=== PATIENT | female | born 1940 | race African-American/Black ===

== ENCOUNTER 2020-07-13 09:10 | Observation (INO) ==
[2020-07-13 09:29] LABS: Basophils % 0.3 % (0.0-0.8); Eosinophils # 0.2 10*3/uL (0.0-0.87); Eosinophils % 1.3 % (0.00-10.9); Hematocrit 34.7 VOL% (35.7-47.0); Hemoglobin 11.3 GM/DL (12.0-16.0); Immature Granulocytes % 0.6 %; Immature Granulocytes Absolute 0.08 #; Lymphocytes # 2.2 10*3/uL (1.4-4.0); Lymphocytes % 16.5 % (21.3-54.2); Mean Corpuscular HGB Conc 32.6 GM/DL (32-36); Mean Corpuscular Volume 84.8 FL (87-102); Mean Platelet Volume 11.3 FL (9.6-12.0); Monocytes % 10.7 % (1.7-12.7); Neutrophils % 70.6 % (38.7-73.9); Platelet Count 369 T/CUMM (130-400); Red Blood Count 4.09 MC/CUMM (3.8-5.5); Red Cell Distribution Width 13.2 % (9.3-17.3); White Blood Count 13.2 T/CUMM (4-12)
[2020-07-13] MEDS ORDERED: FUROSEMIDE 100 MG/10 ML VIAL IV STA (10:06)
[2020-07-13] MEDS ORDERED: ENOXAPARIN 30 MG/0.3 ML SYRINGE SUBCUT STA (10:06)
[2020-07-13] MEDS ORDERED: FUROSEMIDE 40 MG/4 ML VIAL ONE (10:08)
[2020-07-13 10:09] LABS: Albumin 2.5 G/DL (3.4-5.0); Bilirubin,Total 0.4 MG/DL (0.2-1.0); Calcium 9.1 MG/DL (8.5-10.1); Osmolality,Calculated 276.1 MOS/KG (273-304); Total Protein 6.9 G/DL (6.4-8.3)
[2020-07-13] MEDS ORDERED: ENOXAPARIN 120 MG/0.8 ML SYRINGE SUBCUT ONE (10:09)
[2020-07-13] MEDS ORDERED: traZODone 50 MG TABLET PO PRN (10:27)
[2020-07-13] MEDS ORDERED: guaiFENesin/DM ER 600-30 MG TABLET PO PRN (10:27)
[2020-07-13] MEDS ORDERED: MORPHINE 4 MG/1 ML VIAL IV PRN (10:27)
[2020-07-13] MEDS ORDERED: MAGNESIUM SULF RIDER 4 GM in PREMIX 1 EACH IV PRN (10:27)
[2020-07-13] MEDS ORDERED: DOCUSATE SODIUM 100 MG CAPSULE PO PRN (10:27)
[2020-07-13] MEDS ORDERED: POTASSIUM CHLORIDE 20 MEQ TABLET PO PRN (10:27)
[2020-07-13] MEDS ORDERED: PROMETHAZINE 25 MG TABLET PO PRN (10:27)
[2020-07-13] MEDS ORDERED: diphenhydrAMINE CAP 25 MG CAPSULE PO PRN (10:27)
[2020-07-13] MEDS ORDERED: ONDANSETRON 4 MG/2 ML VIAL IV PRN (10:27)
[2020-07-13] MEDS ORDERED: ALUMINUM/MAGNES/SIMETH MAX STR 30 ML UDCUP PO PRN (10:27)
[2020-07-13] MEDS ORDERED: MAGNESIUM SULF RIDER 2 GM in PREMIX 1 EACH IV PRN (10:27)
[2020-07-13] MEDS ORDERED: ACETAMINOPHEN 325 MG TABLET PO PRN (10:27)
[2020-07-13] MEDS ORDERED: hydrALAZINE 20 MG/1 ML VIAL IV PRN (10:27)
[2020-07-13] MEDS ORDERED: BACLOFEN 10 MG TABLET PO PRN (10:31)
[2020-07-13 10:40] LABS: Bilirubin,Urine Negative (Negative); Blood, Urine Negative (Negative); Glucose,Urine (UA) 50 mg/dL (Negative); Ketones,Urine Negative (Negative); Mucus,Urine Occasional /LPF (Occasional); Nitrite,Urine Negative (Negative); Protein,Urine Negative; RBC,Urine 1 /HPF (0-4); Squamous Epithelial Cell,Urine Occasional /HPF (0-10); Urine Appearance CLEAR (Clear); Urine Color Yellow (Yellow); Urine Specific Gravity 1.012 (1.001-1.035); Urine Urobilinogen < 2.0 EU/DL (0.2-1.0); WBC,Urine 1 /HPF (0-6)
[2020-07-13 10:49] LABS: Risk Ratio 5.23; VLDL CHOLESTEROL 24.2 MG/DL
[2020-07-13] MEDS: INSULIN LISPRO 100 UNIT/ML SUBCUT SCH ×3 (12:02→21:29)
[2020-07-13] MEDS: FUROSEMIDE 40 MG/4 ML VIAL IV SCH (16:33)
[2020-07-13] MEDS: carvediloL 12.5 MG TABLET PO SCH (16:54)
[2020-07-13] MEDS: INSULIN ASPART PROTAMINE/ASPART 70/30 100 UNIT/ML SUBCUT SCH (17:51)
[2020-07-13] MEDS: ATORVASTATIN 40 MG TABLET PO SCH (21:28)
[2020-07-13] MEDS: CEFUROXIME 250 MG TABLET PO SCH (21:28)
[2020-07-13] MEDS: ENOXAPARIN 120 MG/0.8 ML SYRINGE SUBCUT SCH (21:28)
[2020-07-13] MEDS: amLODIPine 10 MG TABLET PO SCH (21:28)
[2020-07-14 05:55] LABS: Basophils % 0.3 % (0.0-0.8); Eosinophils # 0.3 10*3/uL (0.0-0.87); Eosinophils % 2.5 % (0.00-10.9); Hematocrit 34.6 VOL% (35.7-47.0); Hemoglobin 10.9 GM/DL (12.0-16.0); Immature Granulocytes % 0.3 %; Immature Granulocytes Absolute 0.04 #; Lymphocytes # 2.9 10*3/uL (1.4-4.0); Lymphocytes % 24.2 % (21.3-54.2); Mean Corpuscular HGB Conc 31.5 GM/DL (32-36); Mean Corpuscular Volume 85.6 FL (87-102); Mean Platelet Volume 12.4 FL (9.6-12.0); Monocytes % 13.7 % (1.7-12.7); Platelet Count 290 T/CUMM (130-400); Red Blood Count 4.04 MC/CUMM (3.8-5.5); Red Cell Distribution Width 13.2 % (9.3-17.3); White Blood Count 11.8 T/CUMM (4-12)
[2020-07-14 06:30] LABS: Alanine Aminotransferase 26 U/L (13-56); Albumin 2.3 G/DL (3.4-5.0); Alkaline Phosphatase 71 U/L (45-117); Aspartate Amino Transferase 28 U/L (0-37); Blood Urea Nitrogen 15 MG/DL (7-18); Calcium 9.5 MG/DL (8.5-10.1); Estimated Glom Filtration Rate 126 ML/MIN; Glucose 57 MG/DL (74-106); Osmolality,Calculated 268.1 MOS/KG (273-304); Total Protein 7.2 G/DL (6.4-8.3)
[2020-07-14] MEDS: INSULIN LISPRO 100 UNIT/ML SUBCUT SCH ×4 (07:44→20:39)
[2020-07-14] MEDS: LORATADINE 10 MG TABLET PO SCH (10:38)
[2020-07-14] MEDS: ASPIRIN EC 81 MG TABLET PO SCH (10:38)
[2020-07-14] MEDS: EZETIMIBE 10 MG TABLET PO SCH (10:38)
[2020-07-14] MEDS: carvediloL 12.5 MG TABLET PO SCH ×2 (10:38→17:43)
[2020-07-14] MEDS: CEFUROXIME 250 MG TABLET PO SCH ×2 (10:38→20:36)
[2020-07-14] MEDS: OLMESARTAN 5 MG TABLET PO SCH (10:38)
[2020-07-14] MEDS: GLIMEPIRIDE 4 MG TABLET PO SCH (10:39)
[2020-07-14] MEDS: hydroCHLOROthiazide 12.5 MG CAPSULE PO SCH (10:39)
[2020-07-14] MEDS: PANTOPRAZOLE 40 MG TABLET PO SCH (10:39)
[2020-07-14] MEDS: ENOXAPARIN 120 MG/0.8 ML SYRINGE SUBCUT SCH (10:39)
[2020-07-14] MEDS: INSULIN ASPART PROTAMINE/ASPART 70/30 100 UNIT/ML SUBCUT SCH ×2 (10:39→17:45)
[2020-07-14] MEDS: FUROSEMIDE 40 MG/4 ML VIAL IV SCH ×2 (10:39→17:43)
[2020-07-14] MEDS: CLOPIDOGREL 75 MG TABLET PO SCH (14:15)
[2020-07-14] MEDS ORDERED: GLUCAGON 1 MG VIAL IM PRN (14:36)
[2020-07-14] MEDS ORDERED: DEXTROSE 50% 25 GM/50 ML VIAL IV PRN (14:36)
[2020-07-14] MEDS: ATORVASTATIN 40 MG TABLET PO SCH (20:36)
[2020-07-14] MEDS: amLODIPine 10 MG TABLET PO SCH (20:37)
[2020-07-15 06:15] LABS: Basophils % 0.3 % (0.0-0.8); Eosinophils # 0.3 10*3/uL (0.0-0.87); Eosinophils % 2.7 % (0.00-10.9); Hematocrit 35.9 VOL% (35.7-47.0); Hemoglobin 11.8 GM/DL (12.0-16.0); Immature Granulocytes % 0.5 %; Immature Granulocytes Absolute 0.06 #; Lymphocytes # 2.8 10*3/uL (1.4-4.0); Lymphocytes % 23.6 % (21.3-54.2); Mean Corpuscular HGB Conc 32.9 GM/DL (32-36); Mean Corpuscular Volume 84.9 FL (87-102); Mean Platelet Volume 11.6 FL (9.6-12.0); Neutrophils % 58.9 % (38.7-73.9); Platelet Count 364 T/CUMM (130-400); Red Blood Count 4.23 MC/CUMM (3.8-5.5); Red Cell Distribution Width 13.2 % (9.3-17.3); White Blood Count 11.6 T/CUMM (4-12)
[2020-07-15 06:38] LABS: Blood Urea Nitrogen 16 MG/DL (7-18); Calcium 9.7 MG/DL (8.5-10.1); Estimated Glom Filtration Rate 81 ML/MIN; Glucose 105 MG/DL (74-106); Osmolality,Calculated 275.7 MOS/KG (273-304)
[2020-07-15] MEDS: INSULIN LISPRO 100 UNIT/ML SUBCUT SCH ×4 (08:36→22:20)
[2020-07-15] MEDS ORDERED: FUROSEMIDE 40 MG/4 ML VIAL IV ONE (09:01)
[2020-07-15] MEDS: ASPIRIN EC 81 MG TABLET PO SCH (09:40)
[2020-07-15] MEDS: CEFUROXIME 250 MG TABLET PO SCH ×2 (09:40→22:24)
[2020-07-15] MEDS: FUROSEMIDE 40 MG TABLET PO SCH (09:41)
[2020-07-15] MEDS: CLOPIDOGREL 75 MG TABLET PO SCH (09:41)
[2020-07-15] MEDS: OLMESARTAN 5 MG TABLET PO SCH (09:41)
[2020-07-15] MEDS: GLIMEPIRIDE 4 MG TABLET PO SCH (09:41)
[2020-07-15] MEDS: carvediloL 12.5 MG TABLET PO SCH ×2 (09:41→17:23)
[2020-07-15] MEDS: MULTIVITAMIN (CENTRUM) TABLET PO SCH (09:41)
[2020-07-15] MEDS: hydroCHLOROthiazide 12.5 MG CAPSULE PO SCH (09:41)
[2020-07-15] MEDS: PANTOPRAZOLE 40 MG TABLET PO SCH (09:41)
[2020-07-15] MEDS: LORATADINE 10 MG TABLET PO SCH (09:42)
[2020-07-15] MEDS: ISOSORBIDE MONONITRATE 30 MG TABLET PO SCH (09:42)
[2020-07-15] MEDS: EZETIMIBE 10 MG TABLET PO SCH (09:42)
[2020-07-15] MEDS: INSULIN ASPART PROTAMINE/ASPART 70/30 100 UNIT/ML SUBCUT SCH ×2 (09:53→17:23)
[2020-07-15] MEDS: amLODIPine 10 MG TABLET PO SCH (22:19)
[2020-07-15] MEDS: ATORVASTATIN 40 MG TABLET PO SCH (22:19)
[2020-07-16 05:31] LABS: Blood Urea Nitrogen 17 MG/DL (7-18); Calcium 9.1 MG/DL (8.5-10.1); Estimated Glom Filtration Rate 92 ML/MIN; Glucose 66 MG/DL (74-106); Osmolality,Calculated 272.8 MOS/KG (273-304)
[2020-07-16 08:36] VITALS: BP 143/63
[2020-07-16] MEDS ORDERED: POLYETHYLENE GLYCOL POWDER 17 GM PACK PO SCH (09:00)
[2020-07-16] MEDS ORDERED: DOCUSATE SODIUM 100 MG CAPSULE PO SCH (09:00)
[2020-07-16] MEDS: INSULIN LISPRO 100 UNIT/ML SUBCUT SCH ×2 (09:19→12:11)
[2020-07-16] MEDS: INSULIN ASPART PROTAMINE/ASPART 70/30 100 UNIT/ML SUBCUT SCH (09:20)
[2020-07-16] MEDS: MULTIVITAMIN (CENTRUM) TABLET PO SCH (09:20)
[2020-07-16] MEDS: OLMESARTAN 5 MG TABLET PO SCH (09:21)
[2020-07-16] MEDS: FUROSEMIDE 40 MG TABLET PO SCH (09:21)
[2020-07-16] MEDS: EZETIMIBE 10 MG TABLET PO SCH (09:21)
[2020-07-16] MEDS: GLIMEPIRIDE 4 MG TABLET PO SCH (09:21)
[2020-07-16] MEDS: PANTOPRAZOLE 40 MG TABLET PO SCH (09:21)
[2020-07-16] MEDS: hydroCHLOROthiazide 12.5 MG CAPSULE PO SCH (09:21)
[2020-07-16] MEDS: CEFUROXIME 250 MG TABLET PO SCH (09:21)
[2020-07-16] MEDS: ISOSORBIDE MONONITRATE 30 MG TABLET PO SCH (09:21)
[2020-07-16] MEDS: ASPIRIN EC 81 MG TABLET PO SCH (09:22)
[2020-07-16] MEDS: carvediloL 12.5 MG TABLET PO SCH (09:22)
[2020-07-16] MEDS: CLOPIDOGREL 75 MG TABLET PO SCH (09:22)
[2020-07-16] MEDS: LORATADINE 10 MG TABLET PO SCH (09:22)
== END 2020-07-16 12:11 | disposition home health service (06) ==
LOC: EDBD → EDUNIT# → N.EDINP 09:10 → N.ED 09:10 → N.EDINP 10:49 → N.TELES 11:06
PROVIDERS: ADMIT Internal Medicine Interventional Cardiology; ATTEND Internal Medicine Interventional Cardiology

== ENCOUNTER 2020-10-06 15:37 | Observation (INO) ==
[2020-10-06 17:03] LABS: Basophils % 0.3 % (0.0-0.8); Eosinophils # 0.3 10*3/uL (0.0-0.87); Hematocrit 36.8 VOL% (35.7-47.0); Hemoglobin 11.9 GM/DL (12.0-16.0); Immature Granulocytes % 0.6 %; Immature Granulocytes Absolute 0.06 #; Lymphocytes # 2.4 10*3/uL (1.4-4.0); Lymphocytes % 25.4 % (21.3-54.2); Mean Corpuscular HGB Conc 32.3 GM/DL (32-36); Mean Corpuscular Volume 84.2 FL (87-102); Mean Platelet Volume 11.4 FL (9.6-12.0); Monocytes % 10.4 % (1.7-12.7); Neutrophils % 60.3 % (38.7-73.9); Platelet Count 307 T/CUMM (130-400); Red Blood Count 4.37 MC/CUMM (3.8-5.5); Red Cell Distribution Width 14.1 % (9.3-17.3); White Blood Count 9.5 T/CUMM (4-12)
[2020-10-06 17:26] LABS: Bilirubin,Total 0.6 MG/DL (0.2-1.0); Calcium 9.4 MG/DL (8.5-10.1); Osmolality,Calculated 278.5 MOS/KG (273-304); Total Protein 7.5 G/DL (6.4-8.3)
[2020-10-06] MEDS ORDERED: GLUCAGON 1 MG VIAL IM PRN (17:36)
[2020-10-06] MEDS ORDERED: MAGNESIUM SULF RIDER 2 GM in PREMIX 1 EACH IV PRN (17:36)
[2020-10-06] MEDS ORDERED: DEXTROSE 50% 25 GM/50 ML VIAL IV PRN (17:36)
[2020-10-06] MEDS ORDERED: MAGNESIUM SULF RIDER 4 GM in PREMIX 1 EACH IV PRN (17:36)
[2020-10-06] MEDS ORDERED: BACLOFEN 10 MG TABLET PO PRN (17:38)
[2020-10-06] MEDS ORDERED: ONDANSETRON 4 MG TABLET PO PRN (17:38)
[2020-10-06] MEDS ORDERED: carvediloL 12.5 MG TABLET PO SCH (21:00)
[2020-10-06] MEDS: amLODIPine 10 MG TABLET PO SCH (21:55)
[2020-10-06] MEDS: ATORVASTATIN 40 MG TABLET PO SCH (21:55)
[2020-10-06] MEDS: INSULIN ASPART PROTAMINE/ASPART 70/30 100 UNIT/ML SUBCUT SCH (22:02)
[2020-10-06] MEDS ORDERED: hydrALAZINE 20 MG/1 ML VIAL IV SCH (23:45)
[2020-10-06] MEDS ORDERED: carvediloL 12.5 MG TABLET PO ONE (23:50)
[2020-10-06] MEDS ORDERED: LABETALOL 20 MG/4 ML SYRINGE IV PRN (23:51)
[2020-10-06] MEDS ORDERED: ALPRAZolam 0.25 MG TABLET PO PRN (23:53)
[2020-10-07] MEDS: NITROGLYCERIN 2% OINT 1 INCH/GM PACK TOP SCH ×2 (00:09→07:10)
[2020-10-07] MEDS ORDERED: hydrALAZINE 20 MG/1 ML VIAL IV PRN (01:18)
[2020-10-07] MEDS: CLOPIDOGREL 75 MG TABLET PO SCH (08:58)
[2020-10-07] MEDS: FUROSEMIDE 40 MG TABLET PO SCH (08:58)
[2020-10-07] MEDS: PANTOPRAZOLE 40 MG TABLET PO SCH (08:59)
[2020-10-07] MEDS: ASPIRIN EC 81 MG TABLET PO SCH (08:59)
[2020-10-07] MEDS: OLMESARTAN 20 MG TABLET PO SCH (08:59)
[2020-10-07] MEDS: EZETIMIBE 10 MG TABLET PO SCH (08:59)
[2020-10-07] MEDS: hydroCHLOROthiazide 12.5 MG CAPSULE PO SCH (08:59)
[2020-10-07] MEDS: carvediloL 25 MG TABLET PO SCH ×2 (08:59→20:29)
[2020-10-07] MEDS: ISOSORBIDE MONONITRATE 30 MG TABLET PO SCH (08:59)
[2020-10-07] MEDS: INSULIN NPH/REGULAR 70/30 100 UNIT/ML SUBCUT SCH (09:00)
[2020-10-07] MEDS ORDERED: DEXTROSE 50% 25 GM/50 ML VIAL IV PRN (09:10)
[2020-10-07] MEDS ORDERED: GLUCAGON 1 MG VIAL IM PRN (09:10)
[2020-10-07] MEDS: ZINC GLUCONATE 50 MG TABLET PO SCH (09:50)
[2020-10-07] MEDS: FAMOTIDINE 20 MG TABLET PO SCH ×2 (09:50→20:29)
[2020-10-07] MEDS: CETIRIZINE 10 MG TABLET PO SCH (09:50)
[2020-10-07] MEDS: CHOLECALCIFEROL 1,000 UNIT TABLET PO SCH (09:50)
[2020-10-07] MEDS: ASCORBIC ACID 500 MG TABLET PO SCH ×2 (09:50→20:29)
[2020-10-07 11:12] LABS: Basophils % 0.3 % (0.0-0.8); Eosinophils # 0.2 10*3/uL (0.0-0.87); Eosinophils % 3.1 % (0.00-10.9); Hematocrit 37.6 VOL% (35.7-47.0); Hemoglobin 11.9 GM/DL (12.0-16.0); Immature Granulocytes % 0.8 %; Immature Granulocytes Absolute 0.06 #; Lymphocytes # 2.3 10*3/uL (1.4-4.0); Mean Corpuscular HGB Conc 31.6 GM/DL (32-36); Mean Corpuscular Volume 84.9 FL (87-102); Mean Platelet Volume 11.3 FL (9.6-12.0); Monocytes % 8.2 % (1.7-12.7); Neutrophils % 57.6 % (38.7-73.9); Platelet Count 318 T/CUMM (130-400); Red Blood Count 4.43 MC/CUMM (3.8-5.5); Red Cell Distribution Width 14.1 % (9.3-17.3); White Blood Count 7.8 T/CUMM (4-12)
[2020-10-07 11:26] LABS: Calcium 9.2 MG/DL (8.5-10.1); Osmolality,Calculated 280.1 MOS/KG (273-304); Potassium 3.8 MMOL/L (3.5-5.1)
[2020-10-07 11:44] LABS: Anisocytosis 1+; Atypical Lymphocytes Few; Band Neutrophils 1 % (0-10); Eosinophils 4 % (0-10); Lymphocytes 31 % (20-55); Platelet Estimate Normal; Segmented Neutrophils 56 % (50-85); Total Cells Counted 100
[2020-10-07] MEDS ORDERED: ACETAMINOPHEN 325 MG TABLET PO PRN (12:00)
[2020-10-07] MEDS ORDERED: SODIUM CHLORIDE 0.9% 1,000 ML IV SCH (12:00)
[2020-10-07] MEDS ORDERED: MECLIZINE 25 MG TABLET PO PRN (12:00)
[2020-10-07] MEDS ORDERED: ONDANSETRON 4 MG/2 ML VIAL IV PRN (12:00)
[2020-10-07] MEDS ORDERED: SODIUM CHLORIDE 0.9% 200 ML IV SCH (12:00)
[2020-10-07] MEDS ORDERED: diphenhydrAMINE 50 MG/1 ML VIAL IV PRN ×2 (12:00)
[2020-10-07] MEDS ORDERED: DEXAMETHASONE 4 MG TABLET PO ONE (12:00)
[2020-10-07] MEDS ORDERED: methylPREDNISolone SOD SUC 125 MG/2 ML VIAL IV PRN (12:00)
[2020-10-07] MEDS ORDERED: [UNRECOGNIZED DRUG - OTHER] IV ONE (13:00)
[2020-10-07] MEDS: INSULIN REGULAR 100 UNIT/ML SUBCUT SCH ×3 (13:56→20:37)
[2020-10-07] MEDS: ATORVASTATIN 40 MG TABLET PO SCH (20:28)
[2020-10-07] MEDS: amLODIPine 10 MG TABLET PO SCH (20:29)
[2020-10-07] MEDS: INSULIN ASPART PROTAMINE/ASPART 70/30 100 UNIT/ML SUBCUT SCH (20:51)
[2020-10-07] MEDS ORDERED: MELATONIN 3 MG TABLET PO SCH (21:00)
[2020-10-08 05:05] LABS: Basophils % 0.2 % (0.0-0.8); Hematocrit 35.2 VOL% (35.7-47.0); Hemoglobin 11.1 GM/DL (12.0-16.0); Immature Granulocytes % 1.8 %; Immature Granulocytes Absolute 0.16 #; Lymphocytes # 1.3 10*3/uL (1.4-4.0); Lymphocytes % 14.6 % (21.3-54.2); Mean Corpuscular HGB Conc 31.5 GM/DL (32-36); Mean Corpuscular Volume 82.8 FL (87-102); Mean Platelet Volume 11.6 FL (9.6-12.0); Monocytes % 7.7 % (1.7-12.7); Neutrophils % 75.7 % (38.7-73.9); Platelet Count 301 T/CUMM (130-400); Red Blood Count 4.25 MC/CUMM (3.8-5.5); Red Cell Distribution Width 13.9 % (9.3-17.3); White Blood Count 9.1 T/CUMM (4-12)
[2020-10-08 05:36] LABS: Calcium 9.1 MG/DL (8.5-10.1); Osmolality,Calculated 290.5 MOS/KG (273-304); Potassium 4.3 MMOL/L (3.5-5.1)
[2020-10-08] MEDS: INSULIN NPH/REGULAR 70/30 100 UNIT/ML SUBCUT SCH (09:38)
[2020-10-08] MEDS: INSULIN REGULAR 100 UNIT/ML SUBCUT SCH ×3 (09:39→17:29)
[2020-10-08] MEDS: OLMESARTAN 20 MG TABLET PO SCH (09:39)
[2020-10-08] MEDS: ISOSORBIDE MONONITRATE 30 MG TABLET PO SCH (09:39)
[2020-10-08] MEDS: ASCORBIC ACID 500 MG TABLET PO SCH (09:40)
[2020-10-08] MEDS: CLOPIDOGREL 75 MG TABLET PO SCH (09:40)
[2020-10-08] MEDS: FUROSEMIDE 40 MG TABLET PO SCH (09:40)
[2020-10-08] MEDS: carvediloL 25 MG TABLET PO SCH (09:40)
[2020-10-08] MEDS: EZETIMIBE 10 MG TABLET PO SCH (09:40)
[2020-10-08] MEDS: ZINC GLUCONATE 50 MG TABLET PO SCH (09:40)
[2020-10-08] MEDS: hydroCHLOROthiazide 12.5 MG CAPSULE PO SCH (09:40)
[2020-10-08] MEDS: CETIRIZINE 10 MG TABLET PO SCH (09:40)
[2020-10-08] MEDS: CHOLECALCIFEROL 1,000 UNIT TABLET PO SCH (09:40)
[2020-10-08] MEDS: FAMOTIDINE 20 MG TABLET PO SCH (09:40)
[2020-10-08] MEDS: PANTOPRAZOLE 40 MG TABLET PO SCH (09:40)
[2020-10-08] MEDS: ASPIRIN EC 81 MG TABLET PO SCH (09:41)
[2020-10-08 11:19] VITALS: BP 127/80
== END 2020-10-08 17:35 | disposition home health service (06) ==
LOC: EDUNIT# → EDBD → N.ED 15:37 → N.EDINP 15:37 → SUATTDRO 17:36 → N.CC 22:10 → N.2E 10-07 10:20
PROVIDERS: ADMIT Internal Medicine Interventional Cardiology; ATTEND Internal Medicine